=== PATIENT | male | born 1960 | race American Indian/Alaskan Native ===

== ENCOUNTER 2019-02-02 11:22 | Emergency (ER) | payer OTHER ==
--- NOTE | 2019-02-02 11:48 | Emergency Department Report ---
Blank Doc - Documentation Documentation: This is a 58-year-old male that presents with URI symptoms. This initial assessment diagnostic orders/clinical plan/treatment(s) is/are subject to change based on patient's health status, clinical progression and re- assessment by fellow clinical providers in the ED. Further treatment and workup at subsequent clinical providers discretion. Patient/guardians urged not to elope from ED s their condition may be serious if not clinically assessed and managed. Initial orders include: 1-patient sent to [facility] for further evaluation and treatment. 2- cxr
[2019-02-02 11:49] VITALS: BP 128/83
--- NOTE | 2019-02-02 13:37 | Emergency Department Report ---
- General Chief Complaint: Upper Respiratory Infection Stated Complaint: COLD SX/COUGHING/CHEST PAIN Time Seen by Provider: 02/02/19 11:48 Source: patient Mode of arrival: Ambulatory Limitations: No Limitations - History of Present Illness Initial Comments: 58-year-old male with no past medical history presents to ED with cough 3 days. Patient reports associated congestion, sneezing, chest pain with cough. Denies fever, shortness of breath. Patient states no relief with OTC meds. MD Complaint: cough, rhinorrhea -: days(s) (3) Severity: mild Consistency: constant Improves With: nothing Worsens With: nothing Associated Symptoms: rhinorrhea, cough, chest pain (with cough only). denies: fever, chills, shortness of breath, abdominal pain, vomiting Treatments Prior to Arrival: "cold medicine" - Related Data Previous Rx's Medication Instructions Recorded Last Taken Type Benzonatate [Tessalon Perles] 100 mg PO Q8HR PRN #20 capsule 02/02/19 Unknown Rx Fluticasone [Flonase] 1 spray NS QDAY #1 bottle 02/02/19 Unknown Rx Naproxen [Naprosyn] 500 mg PO BID #20 tablet 02/02/19 Unknown Rx Allergies Allergy/AdvReac Type Severity Reaction Status Date / Time No Known Allergies Allergy Verified 02/02/19 11:26 ED Review of Systems ROS: Stated complaint: COLD SX/COUGHING/CHEST PAIN Other details as noted in HPI Comment: All other systems reviewed and negative Constitutional: denies: chills, fever Respiratory: cough. denies: shortness of breath Gastrointestinal: denies: nausea, vomiting Musculoskeletal: other (chest wall pain w/ cough) ED Past Medical Hx - Past Medical History Previous Medical History?: No - Surgical History Past Surgical History?: No - Social History Smoking Status: Never Smoker - Medications Home Medications: Home Medications Medication Instructions Recorded Confirmed Last Taken Type Benzonatate [Tessalon Perles] 100 mg PO Q8HR PRN #20 capsule 02/02/19 Unknown Rx Fluticasone [Flonase] 1 spray NS QDAY #1 bottle 02/02/19 Unknown Rx Naproxen [Naprosyn] 500 mg PO BID #20 tablet 02/02/19 Unknown Rx ED Physical Exam - General Limitations: No Limitations General appearance: alert, in no apparent distress - Head Head exam: Present: atraumatic, normocephalic - Eye Eye exam: Present: normal appearance - ENT ENT exam: Present: mucous membranes moist - Neck Neck exam: Present: normal inspection - Respiratory Respiratory exam: Present: normal lung sounds bilaterally. Absent: respiratory distress - Cardiovascular Cardiovascular Exam: Present: regular rate, normal rhythm - GI/Abdominal GI/Abdominal exam: Present: soft. Absent: distended, tenderness - Extremities Exam Extremities exam: Present: normal inspection - Neurological Exam Neurological exam: Present: alert, oriented X3 - Psychiatric Psychiatric exam: Present: normal affect, normal mood - Skin Skin exam: Present: warm, dry, intact, normal color ED Course Vital Signs 02/02/19 11:48 Temperature 97.7 F Pulse Rate 65 Respiratory 18 Rate Blood Pressure 128/83 O2 Sat by Pulse 98 Oximetry ED Medical Decision Making - Radiology Data Radiology results: report reviewed, image reviewed - Medical Decision Making - O2 sats normal - no resp distress - lung exam normal - CXR negative - rx for URI meds including flonase, tessalon, naprosyn - Differential Diagnosis URI, pneumonia, pulm edema Critical care attestation.: If time is entered above; I have spent that time in minutes in the direct care of this critically ill patient, excluding procedure time. ED Disposition Clinical Impression: URI (upper respiratory infection) Disposition: - TO HOME OR SELFCARE Is pt being admited?: No Condition: Stable Instructions: Upper Respiratory Infection (ED) Prescriptions: Fluticasone [Flonase] 1 spray NS QDAY #1 bottle Naproxen [Naprosyn] 500 mg PO BID #20 tablet Benzonatate [Tessalon Perles] 100 mg PO Q8HR PRN #20 capsule PRN Reason: Cough Referrals: ROSA GARCIA MD [Primary Care Provider] - 3-5 Days PRIMARY MD LINDA [Referring] - 3-5 Days [facility] [Provider Group] - 3-5 Days Time of Disposition: 14:26
--- NOTE | 2019-02-02 14:17 | XRay Report ---
ROUTINE CHEST, TWO VIEWS: HISTORY: Cough. The trachea, heart, mediastinal contour, lung kruger and bony thorax are unremarkable. IMPRESSION: Unremarkable chest x-ray.
== END 2019-02-02 14:40 | disposition home or self-care (01) ==
LOC: ED 11:22
DX: J06.9 Acute upper respiratory infection, unspecified (principal)
CPT/HCPCS: 71046; 99283